=== PATIENT | male | born 1955 | race Caucasian/White ===

== ENCOUNTER 2018-06-27 11:48 | Emergency (ER) | payer BC, OTHER ==
--- NOTE | 2018-06-27 11:59 | EDM.PDOC ---
ED HPI GENERAL MEDICAL PROBLEM - General Chief Complaint: Lower Extremity Injury/Pain Stated Complaint: INJURED LT FOOT Time Seen by Provider: 06/27/18 11:56 Source of Information: Reports: Patient History Limitations: Reports: No Limitations - History of Present Illness INITIAL COMMENTS - FREE TEXT/NARRATIVE: HISTORY AND PHYSICAL: History of present illness: Patient is a 62-year-old male who presents to the emergency room with complaints of left lateral foot pain radiating into his left ankle. He states he stepped on a pallet and rolled his ankle resulting in pain and soft tissue swelling. He denies any numbness or tingling of the affected extremity. Patient is ambulatory and able to weight-bear into the emergency room although states this is painful. Denies any previous injury, trauma or surgeries of the affected extremity. Review of systems: As per history of present illness and below otherwise all systems reviewed and negative. Past medical history: As per history of present illness and as reviewed below otherwise noncontributory. Surgical history: As per history of present illness and as reviewed below otherwise noncontributory. Social history: See social history for further information Family history: As per history of present illness and as reviewed below otherwise noncontributory. Physical exam: General: Well-developed and well-nourished 62-year-old male. Alert and oriented. Nontoxic appearing and in no acute distress. HEENT: Atraumatic, normocephalic, pupils equal and reactive bilaterally, negative for conjunctival pallor or scleral icterus, mucous membranes moist, TMs normal bilaterally, throat clear, neck supple, nontender, trachea midline. No drooling or trismus noted. No meningeal signs. No hot potato voice noted. Lungs: Clear to auscultation, breath sounds equal bilaterally, chest nontender. Heart: S1S2, regular rate and rhythm without overt murmur Abdomen: Soft, nondistended, nontender. Pelvis: Stable nontender. Genitourinary: Deferred. Rectal: Deferred. Skin: See extremities. Intact, warm, dry. No lesions or rashes noted. Extremities: Patient is weightbearing and ambulatory into the emergency room. Mild soft tissue swelling noted to the left lateral malleolus. Tenderness with palpation of the left lateral malleolus into the lateral plantar surface of the foot. Strong pedal pulse, moves all extremities per self with difficulty or deficits, negative for cords or calf pain. Neurovascular unremarkable. Neuro: Awake, alert, oriented. Cranial nerves II through XII unremarkable. Cerebellum unremarkable. Motor and sensory unremarkable throughout. Exam nonfocal. Notes: X-ray shows no acute osseous abnormality, dislocation or fractures. There are mild degenerative changes but without acute findings. We'll give patient crutches and can walker boot. Supportive care measures were reviewed and discussed. Voices understanding and is agreeable to plan of care. Denies any further questions or concerns at this time. Diagnostics: X-ray Therapeutics: Crutches, cam walker boot Prescription: Diclofenac Impression: Left ankle injury Plan: 1. Rest, ice, elevate the affected extremity. Please wear the splint as directed. 2. Tylenol and/or Ibuprofen as needed for pain management. 3. Follow up with the Orthopedic provider as we discussed. Return to the ED as needed and as discussed. Definitive disposition and diagnosis as appropriate pending reevaluation and review of above. Left ankle Pain Score (Numeric/FACES): 6 - Related Data Allergies Allergy/AdvReac Type Severity Reaction Status Date / Time No Known Allergies Allergy Verified 06/27/18 11:59 Home Meds: Home Meds . [No Known Home Meds] 12/09/15 [History] Past Medical History - Past Surgical History HEENT Surgical History: Reports: Tonsillectomy GI Surgical History: Reports: Cholecystectomy Social & Family History - Family History Cardiac: Reports: [place] - Caffeine Use Caffeine Use: Reports: Coffee, Soda Review of Systems - Review of Systems Review Of Systems: ROS reveals no pertinent complaints other than HPI. ED EXAM, GENERAL - Physical Exam Exam: See Below (See dictation) Course - Vital Signs Last Recorded V/S: Last Vital Signs Temp 96.8 F 06/27/18 12:01 Pulse 88 06/27/18 12:01 Resp 16 06/27/18 12:01 BP 144/105 H 06/27/18 12:01 Pulse Ox 97 06/27/18 12:01 Departure - Departure Time of Disposition: 13:03 Disposition: Home, Self-Care 01 Clinical Impression: Left ankle injury Qualifiers: Encounter type: initial encounter Qualified Code(s): S99.912A - Unspecified injury of left ankle, initial encounter - Discharge Information Instructions: Ankle Sprain, [id number] Referrals: Manolo De Leon MD [Primary Care Provider] - Forms: ED Department Discharge Additional Instructions: The following information is given to patients seen in the emergency department who are being discharged to home. This information is to outline your options for follow-up care. We provide all patients seen in our emergency department with a follow-up referral. The need for follow-up, as well as the timing and circumstances, are variable depending upon the specifics of your emergency department visit. If you don't have a primary care physician on staff, we will provide you with a referral. We always advise you to contact your personal physician following an emergency department visit to inform them of the circumstance of the visit and for follow-up with them and/or the need for any referrals to a consulting specialist. The emergency department will also refer you to a specialist when appropriate. This referral assures that you have the opportunity for follow-up care with a specialist. All of these measure are taken in an effort to provide you with optimal care, which includes your follow-up. Under all circumstances we always encourage you to contact your private physician who remains a resource for coordinating your care. When calling for follow-up care, please make the office aware that this follow-up is from your recent emergency room visit. If for any reason you are refused follow-up, please contact the [facility] Emergency Department at and asked to speak to the emergency department charge nurse. [facility] [address] [place], [place] [id number] [place] [address] 1. Rest, ice, elevate the affected extremity. Please wear the splint as directed. 2. Tylenol and/or Ibuprofen as needed for pain management. 3. Follow up with the Orthopedic provider as we discussed. Return to the ED as needed and as discussed.
--- NOTE | 2018-06-27 12:54 | CR ---
EXAMINATION: Left ankle and left foot HISTORY: Pain COMPARISON: None TECHNIQUE: 3 views of the left ankle and 2 views of the left foot FINDINGS: There is no acute osseous abnormality, dislocation, or fracture. Bone mineralization is normal. Ankle mortise and talar dome are intact. Well-corticated ossific densities are noted adjacent to the medial malleolus, likely secondary to previous injury. There is induration of Kager's fat pad. Small plantar calcaneal spur. 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 IMPRESSION: 1. Mild degenerative changes without acute findings.
[2018-06-27 14:32] VITALS: BP 134/81
== END 2018-06-27 13:31 | disposition home or self-care (01) ==
LOC: MW.ED 11:48
DX: S99.912A Unspecified injury of left ankle, initial encounter (principal); X50.1XXA Overexertion from prolonged static or awkward postures, initial encounter
CPT/HCPCS: 73610-26-LT; 73610-LT; 73620-26-LT; 73620-LT; 99283; 99283-25

== ENCOUNTER 2018-08-20 03:06 | Emergency (ER) | payer BC ==
[2018-08-20] MEDS ORDERED: Ketorolac 60 MG/2 ML SDV IM ONE (03:41)
--- NOTE | 2018-08-20 03:48 | EDM.PDOC ---
ED HPI GENERAL MEDICAL PROBLEM - General Chief Complaint: Lower Extremity Injury/Pain Stated Complaint: RIGHT KNEE PAIN FROM FALL Time Seen by Provider: 08/20/18 03:37 - History of Present Illness INITIAL COMMENTS - FREE TEXT/NARRATIVE: HISTORY AND PHYSICAL: History of present illness: The patient is a 62-year-old male who says he has broken his knee in the past and presents after he missed a step and fell landing onto the upper portion of the lateral right knee. He says he also landed on his elbow on the right but has no pain there and does not want evaluation for that. He denies any lower leg ankle or foot pain and has no proximal thigh or hip pain. He did not take any medications for this and this event occurred approximately at 10 PM, 5-1/2 hours ago. The patient says he did not hit his head pass out or black out and has no head neck or back pain. The area of pain that the patient is concerned about is on the lateral aspect of the right knee just superior to the patella at the distal femur area. Review of systems: As per history of present illness and below otherwise all systems reviewed and negative. Past medical history: As per history of present illness and as reviewed below otherwise noncontributory. Surgical history: As per history of present illness and as reviewed below otherwise noncontributory. Social history: No reported history of drug or alcohol abuse. Family history: As per history of present illness and as reviewed below otherwise noncontributory. Physical exam: General: Well-developed well-nourished man who is nontoxic and vital signs are noted by me HEENT: Atraumatic, normocephalic, negative for conjunctival pallor or scleral icterus, mucous membranes moist, throat clear, neck supple, nontender, trachea midline. There are no midline step-offs tenderness defects of the cervical spine Lungs: Clear to auscultation, breath sounds equal bilaterally, chest nontender. Heart: S1S2, regular rate and rhythm no overt murmurs Abdomen: Soft, nondistended, nontender. NABS Pelvis: Stable nontender. There is no lateral hip tenderness on the right Genitourinary: Deferred. Rectal: Deferred. Extremities: Atraumatic with full range of motion of all extremities with the exception of the right knee where there is tenderness at the lateral aspect with a small soft suprapatellar effusion appreciated. There is tenderness with palpation at this area but there is no proximal femur tenderness defects or deformities nor any thigh swelling and no distal tib-fib ankle foot tenderness defects or deformities. Patella is in proper location and the overall knee demonstrates normal alignment area there is no erythema or ecchymosis/abrasion, negative for cords or calf pain. At the right elbow there is no soft tissue swelling abrasion defects or deformities nor is there any tenderness in the patient has full range of motion. He is not concerned about this area Neurovascular unremarkable. Neuro: Awake, alert, oriented. Cranial nerves II through XII unremarkable. Cerebellum unremarkable. Motor and sensory unremarkable throughout. Exam nonfocal. Back: There are no midline step-offs in his defects of the thoracic or lumbar spine and no posterior rib or posterior pelvis tenderness Diagnostics: X-ray right knee I did offer evaluation of the right elbow but the patient declines Therapeutics: Toradol IM crutches and knee immobilizer Chad bandage Impression: Right knee injury with effusion Definitive disposition and diagnosis as appropriate pending reevaluation and review of above. Right Knee Pain Score (Numeric/FACES): 8 - Related Data Allergies Allergy/AdvReac Type Severity Reaction Status Date / Time No Known Allergies Allergy Verified 08/20/18 03:21 Home Meds: Home Meds . [No Known Home Meds] 12/09/15 [History] Past Medical History Cardiovascular History: Reports: None Respiratory History: Reports: None Gastrointestinal History: Reports: None Genitourinary History: Reports: None Musculoskeletal History: Reports: Fracture Other Musculoskeletal History: R knee, R wrist, R ribs Neurological History: Reports: None Psychiatric History: Reports: None Endocrine/Metabolic History: Reports: None Hematologic History: Reports: None Immunologic History: Reports: None Oncologic (Cancer) History: Reports: None Dermatologic History: Reports: None - Infectious Disease History Infectious Disease History: Reports: Chicken Pox, Influenza, Measles, Mumps - Past Surgical History Head Surgeries/Procedures: Reports: None HEENT Surgical History: Reports: Tonsillectomy GI Surgical History: Reports: Cholecystectomy Social & Family History - Family History Family Medical History: Noncontributory Cardiac: Reports: OR - Tobacco Use Smoking Status *Q: Current Every Day Smoker Years of Tobacco use: 25 Packs/Tins Daily: 1 - Caffeine Use Caffeine Use: Reports: Coffee, Soda - Recreational Drug Use Recreational Drug Use: No Review of Systems - Review of Systems Review Of Systems: ROS reveals no pertinent complaints other than HPI. ED EXAM, GENERAL - Physical Exam Exam: See Below (See dictation) Course - Vital Signs Last Recorded V/S: Last Vital Signs Temp 35.9 C 08/20/18 03:18 Pulse 93 08/20/18 03:18 Resp BP 105/68 08/20/18 03:18 Pulse Ox 97 08/20/18 03:18 - Orders/Labs/Meds Orders: Active Orders 24 hr Category Date Time Status DME for Discharge [COMM] Stat Oth 08/20/18 04:45 Ordered Meds: Medications Discontinued Medications Generic Name Dose Route Start Last Admin Trade Name Freq PRN Reason Stop Dose Admin Ketorolac Tromethamine 60 mg 08/20/18 03:41 08/20/18 03:49 Toradol IM 08/20/18 03:42 60 mg ONETIME ONE Administration Departure - Departure Time of Disposition: 04:46 Disposition: Home, Self-Care 01 Condition: Good Clinical Impression: Right knee injury Qualifiers: Encounter type: initial encounter Qualified Code(s): S89.91XA - Unspecified injury of right lower leg, initial encounter - Discharge Information Referrals: Manolo De Leon MD [Primary Care Provider] - Forms: ED Department Discharge Additional Instructions: The following information is given to patients seen in the emergency department who are being discharged to home. This information is to outline your options for follow-up care. We provide all patients seen in our emergency department with a follow-up referral. The need for follow-up, as well as the timing and circumstances, are variable depending upon the specifics of your emergency department visit. If you don't have a primary care physician on staff, we will provide you with a referral. We always advise you to contact your personal physician following an emergency department visit to inform them of the circumstance of the visit and for follow-up with them and/or the need for any referrals to a consulting specialist. The emergency department will also refer you to a specialist when appropriate. This referral assures that you have the opportunity for followup care with a specialist. All of these measure are taken in an effort to provide you with optimal care, which includes your followup. Under all circumstances we always encourage you to contact your private physician who remains a resource for coordinating your care. When calling for followup care, please make the office aware that this follow-up is from your recent emergency room visit. If for any reason you are refused follow-up, please contact the [facility] emergency department at and ask to speak to the emergency department charge nurse. [facility]--Orthopedic clinic Professional [address] [address] Ice and elevate the area as much as possible and do not weight-bear until you' re followed up in the clinic. Use crutches at all times. Use the Chad and the immobilizer as shown and remove the Chad at bedtime. Use [id number] Tylenol or ibuprofen/Motrin for pain management. Please contact the clinic in the morning to schedule a follow-up appointment and return to ER as needed and as discussed - My Orders Last 24 Hours: My Active Orders 08/20/18 04:45 DME for Discharge [COMM] Stat - Assessment/Plan Last 24 Hours: My Active Orders 08/20/18 04:45 DME for Discharge [COMM] Stat
--- NOTE | 2018-08-20 04:43 | CR ---
Indication: Fall. Pain Technique: Three views of the right knee Comparison: None available Findings/Impression: Bones: Alignment is normal. No fractures or bone lesions. Joint spaces: Preserved. A small ovoid calcific density adjacent to the anterior tibial plateau on the lateral view could represent a loose intra-articular body. Apparent mild edema in Hoffa`s fat pad. A small suprapatellar effusion is difficult to exclude. Soft tissues: Unremarkable. Dictated by Chava Lowry MD @ 08/20/2018 4:42:10 AM Dictated by: Chava Lowry MD @ 08/20/2018 04:42:16 (Electronically Signed)
[2018-08-20 05:05] VITALS: BP 100/71
== END 2018-08-20 05:00 | disposition home or self-care (01) ==
LOC: MW.ED 03:06
DX: S89.91XA Unspecified injury of right lower leg, initial encounter (principal); M25.461 Effusion, right knee; F17.210 Nicotine dependence, cigarettes, uncomplicated; Z90.49 Acquired absence of other specified parts of digestive tract; Z98.890 Other specified postprocedural states; W10.9XXA Fall (on) (from) unspecified stairs and steps, initial encounter
CPT/HCPCS: 73562; 96372; 99283; J1885; 99284